=== PATIENT | male | born 1960 | race Caucasian/White ===

== ENCOUNTER 2017-05-03 07:43 | Day surgery (SDC) | payer MEDICARE ==
[2015-05-06 10:10] VITALS: BMI 37.3
[2017-05-03] MEDS ORDERED: Lactated Ringer's 1,000 ML IV ONE (08:51)
[2017-05-03] MEDS ORDERED: Propofol 10 mg/ml Inj (20 ML) ONE (10:28)
[2017-05-03 10:51] VITALS: TEMP 97.5
[2017-05-03 11:03] VITALS: BP 125/78; PULSE 70; RESP 16; O2SAT 98
== END 2017-05-03 11:04 | disposition home or self-care (01) ==
LOC: H.ENDO 07:43
PROVIDERS: ATTEND Internal Medicine Gastroenterology
DX: Z12.11 Encounter for screening for malignant neoplasm of colon (principal); K62.1 Rectal polyp; K64.8 Other hemorrhoids; E11.9 Type 2 diabetes mellitus without complications
CPT/HCPCS: 45380; 82948; 88305; J2704; J7120

== ENCOUNTER 2018-04-01 01:27 | Observation (INO) | payer MEDICARE ==
[2018-04-01 01:54] VITALS: BMI 32.3
--- NOTE | 2018-04-01 02:13 | ED PDOC ---
HPI: SOB/CHF/COPD Time Seen by Provider: 04/01/18 01:37 Chief Complaint (Nursing): Shortness Of Breath Chief Complaint (Provider): Shortness Of Breath History Per: Patient History/Exam Limitations: no limitations Onset/Duration Of Symptoms: Days (x1) Additional Complaint(s): 57 y/o male with history of CAD with 2 stents, diabetes, HTN, and hypercholesterolemia, presents to the ED with shortness of breath since yesterday that has been progressively worsening. Patient feels a heaviness inside his chest and states he was unable to sleep last night and tonight prompting ED visit. Denies cough, fever, or leg swelling. Patient is compliant with his medications. Past Medical History Reviewed: Historical Data, Nursing Documentation, Vital Signs - Medical History PMH: Anxiety, CAD, HTN, Hypercholesterolemia Denies: HIV, Chronic Kidney Disease - Surgical History Surgical History: Coronary Stent (5 STENTS) - Family History Family History: States: Unknown Family Hx - Home Medications Home Medications: Ambulatory Orders Medication Instructions Recorded Aspirin [Aspirin Chewable] 81 mg PO DAILY #0 chew 04/11/15 Atorvastatin [Lipitor] 80 mg PO DAILY #0 tab 04/11/15 MetFORMIN [glucOPHAGE] 850 mg PO BID #0 tab 04/11/15 Metoprolol Tartrate [Lopressor] 25 mg PO Q12 #0 tab 04/11/15 Ticagrelor [Brilinta] 90 mg PO BID #0 tab 04/11/15 Enalapril Maleate 5 mg PO DAILY 04/01/18 - Allergies Allergies/Adverse Reactions: Allergies Allergy/AdvReac Type Severity Reaction Status Date / Time No Known Allergies Allergy Verified 05/03/17 09:02 Review of Systems ROS Statement: Except As Marked, All Systems Reviewed And Found Negative Constitutional: Negative for: Fever Cardiovascular: Positive for: Chest Pain. Negative for: Edema (leg swelling) Respiratory: Positive for: Shortness of Breath. Negative for: Cough Physical Exam - Reviewed Nursing Documentation Reviewed: Yes Vital Signs Reviewed: Yes - Physical Exam Appears: Positive for: In Acute Distress (mild distress) Head Exam: Positive for: ATRAUMATIC, NORMOCEPHALIC Skin: Positive for: Normal Color, Warm, DRY Eye Exam: Positive for: EOMI, Normal appearance, PERRL Neck: Positive for: Normal, Painless ROM, Supple Cardiovascular/Chest: Positive for: Regular Rate, Rhythm. Negative for: Murmur Respiratory: Positive for: Crackles (bilaterally at lung bases), Other (Tachypnic) Gastrointestinal/Abdominal: Positive for: Normal Exam, Soft. Negative for: Tenderness Extremity: Positive for: Normal ROM. Negative for: Pedal Edema, Deformity, Swelling Neurologic/Psych: Positive for: Alert, Oriented. Negative for: Motor/Sensory Deficits - Laboratory Results Result Diagrams: 04/01/18 02:15 04/01/18 02:15 Medical Decision Making Medical Decision Making: Time: 01:50 A/P: 57 y/o male with history of CAD, diabetes, HTN, and hypercholesterolemia with SOB and chest heaviness. Patient is in mild distress at this time and is uncomfortable appearing. Lung exam demonstrates patient might have fluid overload. Differential diagnosis includes worsening CAD vs. CHF vs. pneumonia vs. valvular disease. * EKG * BNP * BMP * Troponin * CBC w/ diff * PTT * Prothrombin time * CXR 3AM --Patient is improved, feeling better with oxygen, no longer SOB --Patient has cardiomegaly on CXR and blunted L CPA --Will give lasix 40mg x 1 IV --Case discussed with Dr. Martinez, hospitalist for admission --Patient will require continuous cardiac monitoring, serial troponins, and further workup and warranted by inpatient team and cardiology Scribe Attestation: Documented by Kareem Bergeron acting as a scribe for Dustin Burton MD. Provider Scribe Attestation: All medical record entries made by the Scribe were at my direction and personally dictated by me. I have reviewed the chart and agree that the record a ccurately reflects my personal performance of the history, physical exam, medical decision making, and the department course for this patient. I have also personally directed, reviewed, and agree with the discharge instructions and disposition. Disposition - Clinical Impression Clinical Impression: Chest pain - Patient ED Disposition Is Patient to be Admitted: Yes - Disposition Disposition Time: 03:00 Condition: FAIR - Pt Status Changed To: Hospital Disposition Of: Inpatient - Admit Certification Admit to Inpatient:: After my assessment, the patient will require hospitalization for at least two midnights. This is because of the severity of symptoms shown, intensity of services needed, and/or the medical risk in this patient being treated as an outpatient.
[2018-04-01 02:34] LABS: PROTHROMBIN TIME 11.9 Seconds (9.8-13.1)
[2018-04-01 02:36] LABS: BASO % 0.5 % (0.0-2.0); EOS # 0.1 K/uL (0.0-0.7); EOS % 1.1 % (0.0-4.0); HEMOGLOBIN 13.6 g/dL (12.0-18.0); LYMPH # 1.6 K/uL (1.0-4.3); LYMPH % 14.6 % (20.0-40.0); MEAN CELL VOLUME 90.8 fl (80.0-94.0); MEAN CORPUSCULAR HEMOGLOBIN 29.5 pg (27.0-31.0); MEAN CORPUSCULAR HGB CONC 32.5 g/dL (33.0-37.0); MEAN PLATELET VOLUME 8.8 fl (7.2-11.7); MONO # 0.6 K/uL (0.0-0.8); MONO % 5.7 % (0.0-10.0); NEUT # 8.3 K/uL (1.8-7.0); NEUT % 78.1 % (50.0-75.0); NRBC % 0.2 % (0.0-0.0); RBC 4.6 Mil/uL (4.40-5.90); RED CELL DISTRIBUTION WIDTH 13.7 % (11.5-14.5); WHITE BLOOD COUNT 10.7 K/uL (4.8-10.8)
[2018-04-01 02:38] LABS: BLOOD UREA NITROGEN 19 mg/dl (9-20); CALCIUM 8.7 mg/dL (8.4-10.2); GFR NON-AFRICAN AMERICAN > 60
[2018-04-01 02:50] LABS: B-TYPE NATRIURETIC PEPTIDE 1670 pg/ml (0-900)
[2018-04-01] MEDS ORDERED: Dextrose 50% SYRINGE Inj (50 ml) IV PRN (04:31)
[2018-04-01] MEDS ORDERED: Glucagon Recombinant 1 mg Inj IM PRN (04:31)
--- NOTE | 2018-04-01 04:39 | CP.PCM.HP ---
<Sultan Magdy - Last Filed: 04/01/18 05:29> History of Present Illness - History of Present Illness History of Present Illness: CC: Worsening shortness of breath HPI: 57 year old male with PMHx of NSTEMI, CAD s/p 6 stents, DMII, HTN, HLD, CVA, ?COPD presents to [facility] ED with complaints of worsening shortness of breath for last few days. Patient reports he has been having trouble sleeping due to dyspnea and came to ED for evaluation. Patient reports PND and orthopnea for many months but worsens last few days. States he is able to walk only 1-2 blocks before gets shortness of breath and uses 2 pillows at night to sleep. Patient admits he is non-complaint with all of his medications, usually takes it every other day but last 3 days he has not taken any medications. Patient denies any h x congestive heart failure. Denies any leg swelling, chest pain, cough, nausea, vomiting, focal weakness, fever, or chills. Patient has smoked 1 PPD x 35 years but never been diagnosed with COPD. PMD: Dr. Umesh Veliz Customer Success Manager: Dr. Singh (last visit >2 yrs ago) PMHx: NSTEMI, CAD, HTN, HLD, DMII, CVA, ?COPD, heavy smoker SHx: Stents x 6, knee replacement Social hx: Retired 10+ yrs ago, used to work as a shipyard mechanic and welder job. Smokes 1 PPD X 35 yrs. Denies drinking EtOH or using drugs. Family hx: Father: CAD Allergies: NKDA Medications: Aspirin 81 mg PO DAILY Atorvastatin 80 mg PO DAILY, MetFORMIN 850 mg PO BID, Metoprolol Tartrate 25 mg PO Q12, Ticagrelor 90 mg PO BID, Enalapri l Maleate 5 mg PO DAILY personnel administrator: , Peace Escalona ([phone]) Present on Admission - Present on Admission Any Indicators Present on Admission: No Review of Systems - Review of Systems Review of Systems: All 12 systems reviewed and negative except as mentioned in HPI Past Patient History - Infectious Disease Hx of Infectious Diseases: None - Past Medical History & Family History Past Medical History?: Yes - Past Social History Smoking Status: Heavy Smoker > 10 Cigarettes Daily - CARDIAC Hx Hypercholesterolemia: Yes Hx Hypertension: Yes - PULMONARY Hx Respiratory Disorders: No - NEUROLOGICAL Hx Neurological Disorder: No - HEENT Hx HEENT Problems: No - RENAL Hx Chronic Kidney Disease: No - ENDOCRINE/METABOLIC Hx Endocrine Disorders: Yes Hx Diabetes Mellitus Type 2: Yes - HEMATOLOGICAL/ONCOLOGICAL Hx Human Immunodeficiency Virus (HIV): No - INTEGUMENTARY Hx Dermatological Problems: No - MUSCULOSKELETAL/RHEUMATOLOGICAL Hx Musculoskeletal Disorders: Yes Hx Falls: No Other/Comment: RT rotator cuff. - GASTROINTESTINAL Hx Gastrointestinal Disorders: No - GENITOURINARY/GYNECOLOGICAL Hx Genitourinary Disorders: No - PSYCHIATRIC Hx Anxiety: Yes - SURGICAL HISTORY Hx Coronary Stent: Yes (5 STENTS) - ANESTHESIA Hx Anesthesia: Yes Hx Anesthesia Reactions: No Hx Malignant Hyperthermia: No Meds Allergies/Adverse Reactions: Allergies Allergy/AdvReac Type Severity Reaction Status Date / Time No Known Allergies Allergy Verified 05/03/17 09:02 Physical Exam - Constitutional Appears: Non-toxic, Other (obese, look uncomfortable, on [place] oxygen) - Head Exam Head Exam: ATRAUMATIC, NORMOCEPHALIC - Eye Exam Eye Exam: EOMI, Normal appearance - ENT Exam ENT Exam: Mucous Membranes Moist - Neck Exam Neck exam: Positive for: Full Rom, Normal Inspection - Respiratory Exam Respiratory Exam: NORMAL BREATHING PATTERN. absent: Accessory Muscle Use, Rhonchi, Wheezes, Respiratory Distress Additional comments: Crackles B/L lower lung field - Cardiovascular Exam Cardiovascular Exam: REGULAR RHYTHM, +S1, +S2 - GI/Abdominal Exam GI & Abdominal Exam: Normal Bowel Sounds, Soft. absent: Tenderness - Extremities Exam Extremities exam: Positive for: normal capillary refill, normal inspection, pedal pulses present. Negative for: calf tenderness, pedal edema - Neurological Exam Neurological exam: Alert, Oriented x3 - Psychiatric Exam Psychiatric exam: Normal Affect, Normal Mood - Skin Skin Exam: Normal Color, Warm Results - Vital Signs Recent Vital Signs: Last Vital Signs Temp 97.8 F 04/01/18 02:15 Pulse 79 04/01/18 02:18 Resp 20 04/01/18 02:18 BP 155/107 H 04/01/18 03:43 Pulse Ox 99 04/01/18 02:18 - Labs Result Diagrams: 04/01/18 02:15 04/01/18 02:15 Labs: Laboratory Results - last 24 hr 04/01/18 04/01/18 04/01/18 02:15 02:15 02:15 WBC 10.7 RBC 4.60 Hgb 13.6 Hct 41.8 MCV 90.8 MCH 29.5 MCHC 32.5 L RDW 13.7 Plt Count 185 MPV 8.8 Neut % (Auto) 78.1 H Lymph % (Auto) 14.6 L Taylor % (Auto) 5.7 Eos % (Auto) 1.1 Baso % (Auto) 0.5 Neut # (Auto) 8.3 H Lymph # (Auto) 1.6 Taylor # (Auto) 0.6 Eos # (Auto) 0.1 Baso # (Auto) 0.0 PT 11.9 INR 1.0 APTT 36.0 Sodium 138 Potassium 4.4 Chloride 103 Carbon Dioxide 23 Anion Gap 16 BUN 19 Creatinine 0.8 Est GFR ( Amer) > 60 Est GFR (Non-Af Amer) > 60 Random Glucose 207 H Calcium 8.7 Troponin I 0.0150 NT-Pro-B Natriuret Pep 1670 H Assessment & Plan - Assessment and Plan (Free Text) Assessment: 57 year old male with PMHx of NSEMI, CAD s/p 6 stents, DMII, HTN, HLD, CVA, ?COPD presents to [facility] ED with complaints of worsening shortness of breath for last few days. In the ED, patients proBNP is 1670 and CXR shows cardiomegaly with increased vascular congestion. Patient is admitted for evaluation and management of shortness of breath. Plan: Shortness of breath, likely secondary to CHF exacerbation -Patient denies hx CHF -Echo in 04/09/15: severely reduced LV systolic function with LVEF of 35%; RCA/PDA wall motion abnormality; mild aortic stenosis and aortic insufficiency; moderate mitral regurgitation. -ProBNP : 1670 -s/p Lasix 40 mg IVPB -Continue Lasix 40 mg IVPB -Cardiology consult: Dr. Singh -f/u ECHO -f/u AM labs Shortness of breath r/o ACS - Hx coronary Artery disease s/p 6 stents -EKG: Ischemic changes in anterolateral leads (my interpretation). NSR -Troponin x 1 neg, f/u troponin q6h x 2 -c/w aspirin, brilinta, atorvastatin, BB, ACEI -f/u cardiology consult ?COPD/Asbestos exposure -35 pack year smoking hx -start duoneb q4 hrs -NC oxygen PRN -Monitor symptoms -f/u CXR Result Hypertension -uncontrolled -c/w home medications DMII -Hold metformin -accucheck -SSI (moderate) -Hypoglycemia protocol Hyperlipidemia -c/w Atorvastatin 80 mg po qhs GERD -start protonix 40 mg po DVT Prophylaxis -Lovenox 40 mg sc daily GI prophylaxis -Protonix 40 mg po daily Code Status: -Full code Patient seen, examined and plan d/w Dr. Juan Curran, pgy-2 <Edward Martinez - Last Filed: 04/01/18 06:55> Results - Vital Signs Recent Vital Signs: Last Vital Signs Temp 97.7 F 04/01/18 04:00 Pulse 85 04/01/18 05:36 Resp 18 04/01/18 05:36 BP 158/104 H 04/01/18 04:00 Pulse Ox 97 04/01/18 04:00 - Labs Result Diagrams: 04/01/18 02:15 04/01/18 02:15 Labs: Laboratory Results - last 24 hr 04/01/18 04/01/18 04/01/18 02:15 02:15 02:15 WBC 10.7 RBC 4.60 Hgb 13.6 Hct 41.8 MCV 90.8 MCH 29.5 MCHC 32.5 L RDW 13.7 Plt Count 185 MPV 8.8 Neut % (Auto) 78.1 H Lymph % (Auto) 14.6 L Taylor % (Auto) 5.7 Eos % (Auto) 1.1 Baso % (Auto) 0.5 Neut # (Auto) 8.3 H Lymph # (Auto) 1.6 Taylor # (Auto) 0.6 Eos # (Auto) 0.1 Baso # (Auto) 0.0 PT 11.9 INR 1.0 APTT 36.0 Sodium 138 Potassium 4.4 Chloride 103 Carbon Dioxide 23 Anion Gap 16 BUN 19 Creatinine 0.8 Est GFR ( Amer) > 60 Est GFR (Non-Af Amer) > 60 POC Glucose (mg/dL) Random Glucose 207 H Calcium 8.7 Troponin I 0.0150 NT-Pro-B Natriuret Pep 1670 H 04/01/18 05:46 WBC RBC Hgb Hct MCV MCH MCHC RDW Plt Count MPV Neut % (Auto) Lymph % (Auto) Taylor % (Auto) Eos % (Auto) Baso % (Auto) Neut # (Auto) Lymph # (Auto) Taylor # (Auto) Eos # (Auto) Baso # (Auto) PT INR APTT Sodium Potassium Chloride Carbon Dioxide Anion Gap BUN Creatinine Est GFR ( Amer) Est GFR (Non-Af Amer) POC Glucose (mg/dL) 201 H Random Glucose Calcium Troponin I NT-Pro-B Natriuret Pep Assessment & Plan - Assessment and Plan (Free Text) Plan: Agree with assessment as above, discussed case with resident and agree with treatment and diagnosis
--- NOTE | 2018-04-01 07:09 | CP.PCM.CON ---
History of Present Illness - History of Present Illness History of Present Illness: I was asked to see patient by Dr Martinez. Patient seen 04/01/18 [id number] Patient is a 57 year old male with CAD s/p PCI circumfelx and RCA, ischemic cardiomyopathy, HTn, hypercholesterolemia who presents with dyspnea. Patient has been lost to follow up since 2016, most recently devleoped progressive dyspnea on exertion. Symptoms are worse with walking one block or a flight of stairs. The patient also developed 2 pillow orthopnea. He presented to [facility] for further management. Pro BNP was elevated. Review of Systems - Constitutional Constitutional: absent: As Per HPI, Anorexia, Chills, Daytime Sleepiness, Excessive Sweating, Fatigue, Fever, Frequent Falls, Headache, Increased Appetite, Lethargy, Malaise, Night Sweats, Snoring, Sleep Apnea, Weight Gain, Weight Loss, Weakness, Other - EENT Eyes: absent: As Per HPI, Blind Spots, Blurred Vision, Change in Vision, Decreased Night Vision, Diplopia, Discharge, Dry Eye, Exophthalmos, Floaters, Irritation, Itchy Eyes, Loss of Peripheral Vision, Pain, Photophobia, Requires Corrective Lenses, Sees Flashes, Spots in Vision, Tunnel Vision, Other Visual Disturbances, Loss of Vision, Other Ears: absent: As Per HPI, Decreased Hearing, Ear Discharge, Ear Pain, Tinnitus, Abnormal Hearing, Disequilibrium, Dizziness, Other Nose/Mouth/Throat: absent: As Per HPI, Epistaxis, Nasal Congestion, Nasal Discharge, Nasal Obstruction, Nasal Trauma, Nose Pain, Post Nasal Drip, Sinus Pain, Sinus Pressure, Bleeding Gums, Change in Voice, Dental Pain, Dry Mouth, Dysphagia, Halitosis, Hoarsness, Lip Swelling, Mouth Lesions, Mouth Pain, Odyn ophagia, Sore Throat, Throat Swelling, Tongue Swelling, Facial Pain, Neck Pain, Neck Mass, Other - Cardiovascular Cardiovascular: Dyspnea, Dyspnea on Exertion, Orthopnea - Respiratory Respiratory: Dyspnea - Gastrointestinal Gastrointestinal: absent: As Per HPI, Abdominal Pain, Belching, Bloating, Change in Bowel Habits, Change in Stool Character, Coffee Ground Emesis, Constipation, Cramping, Diarrhea, Dyspepsia, Dysphagia, Early Satiety, Excessive Flatus, Fecal Incontinence, Heartburn, Hematemesis, Hematochezia, Loose Stools, Melena, Nausea, Odynophagia, Temesmus, Vomiting, Other - Genitourinary Genitourinary: absent: As Per HPI, Change in Urinary Stream, Difficulty Urinating, Dysuria, Flank Pain, Hematuria, Pyuria, Nocturia, Urinary Incontinence, Urinary Frequency, Urinary Hesitance, Urinary Urgency, Voiding Freq/Small Amts, Freq UTI, Hx Renal/Bladder Calculi, Hx /Renal Surgery, Bladder Distension, Other - Musculoskeletal Musculoskeletal: absent: As Per HPI, Abnormal Gait, Arthralgias, Atrophy, Back Pain, Deformity, Joint Swelling, Limited Range of Motion, Loss of Height, Muscle Cramps, Muscle Weakness, Myalgias, Neck Pain, Numbness, Radiating Pain into Limb, Stiffness, Tingling, Other - Integumentary Integumentary: absent: As Per HPI, Acne, Alopecia, Bleeding Lesions, Change in Hair, Change in Nails, Change in Pigmentation, Changing Lesions, Dry Skin, Erythema, Furuncle, Hirsutism, Lesions, New Lesions, Non-Healing Lesions, Photosensitivity, Pruritus, Rash, Skin Pain, Skin Ulcer, Sores, Striae, Swelling, Unusual Bruising, Wounds, Jaundice, Other - Neurological Neurological: absent: As Per HPI, Abnormal Gait, Abnormal Hearing, Abnormal Movements, Abnormal Speech, Behavioral Changes, Burning Sensations, Confusion, Convulsions, Disequilibrium, Dizziness, Numbness, Focal Weakness, Frequent Falls, Headaches, Lack of Coordination, Loss of Vision, Memory Loss, Paresthesias, Radicular Pain, Restless Legs, Sensory Deficit, Syncope, Tingling, Tremor, Vertigo, Weakness, Other Visual Disturbances, Other - Psychiatric Psychiatric: absent: As Per HPI, Abnormal Sleep Pattern, Anhedonia, Anxiety, Auditory Hallucinations, Behavioral Changes, Change in Appetite, Change in Libido, Confusion, Depression, Difficulty Concentrating, Hallucinations, Homicidal Ideation, Hopelessness, Irritability, Memory Loss, Mood Swings, Panic Attacks, Paranoia, Suicidal Ideation, Visual Hallucinations, Tactile Hallucinations, Other - Endocrine Endocrine: absent: As Per HPI, Change in Body Appearance, Change in Libido, Cold Intolorance, Deepening of Voice, Excessive Sweating, Fatigue, Flushing, Heat Intolorance, Increase in Ring/Shoe/Hat Size, Palpitations, Polydipsia, Polyphagia, Polyuria, Other - Hematologic/Lymphatic Hematologic: absent: As Per HPI, Easy Bleeding, Easy Bruising, Lymphadenopathy, Other Past Patient History - Infectious Disease Hx of Infectious Diseases: None - Past Medical History & Family History Past Medical History?: Yes - Past Social History Smoking Status: Heavy Smoker > 10 Cigarettes Daily - CARDIAC Hx Hypercholesterolemia: Yes Hx Hypertension: Yes - PULMONARY Hx Respiratory Disorders: No - NEUROLOGICAL Hx Neurological Disorder: No - HEENT Hx HEENT Problems: No - RENAL Hx Chronic Kidney Disease: No - ENDOCRINE/METABOLIC Hx Endocrine Disorders: Yes Hx Diabetes Mellitus Type 2: Yes - HEMATOLOGICAL/ONCOLOGICAL Hx Human Immunodeficiency Virus (HIV): No - INTEGUMENTARY Hx Dermatological Problems: No - MUSCULOSKELETAL/RHEUMATOLOGICAL Hx Musculoskeletal Disorders: Yes Hx Falls: No Other/Comment: RT rotator cuff. - GASTROINTESTINAL Hx Gastrointestinal Disorders: No - GENITOURINARY/GYNECOLOGICAL Hx Genitourinary Disorders: No - PSYCHIATRIC Hx Anxiety: Yes - SURGICAL HISTORY Hx Coronary Stent: Yes (5 STENTS) - ANESTHESIA Hx Anesthesia: Yes Hx Anesthesia Reactions: No Hx Malignant Hyperthermia: No Meds Allergies/Adverse Reactions: Allergies Allergy/AdvReac Type Severity Reaction Status Date / Time No Known Allergies Allergy Verified 05/03/17 09:02 - Medications Medications: Current Medications Acetaminophen (Tylenol 325mg Tab) 650 mg PO Q6 PRN PRN Reason: Pain, Mild (1-3) Albuterol/Ipratropium (Duoneb 3 Mg/0.5 Mg (3 Ml) Ud) 3 ml INH RQ4 [facility] Aspirin (Aspirin Chewable) 81 mg PO DAILY [facility] Atorvastatin Calcium (Lipitor) 80 mg PO DAILY [facility] Dextrose (Dextrose 50% Inj) 0 ml IV STAT PRN; Protocol PRN Reason: Hypoglycemia Protocol Dextrose (Glutose 15) 0 gm PO ONCE PRN; Protocol PRN Reason: Hypoglycemia Protocol Enalapril Maleate (Vasotec) 5 mg PO DAILY [facility] Enoxaparin Sodium (Lovenox) 40 mg SC DAILY [facility]; Protocol Furosemide (Lasix) 40 mg IVP DAILY [facility] Glucagon (Glucagen Diagnostic Kit) 0 mg IM STAT PRN; Protocol PRN Reason: Hypoglycemia Protocol Insulin Human Regular (Humulin R) 0 units SC ACHS [facility]; Protocol Metoprolol Tartrate (Lopressor) 25 mg PO Q12 [facility] Pantoprazole Sodium (Protonix Ec Tab) 40 mg PO DAILY [facility] Ticagrelor (Brilinta) 90 mg PO BID [facility] Physical Exam - Constitutional Appears: Non-toxic - Head Exam Head Exam: NORMAL INSPECTION - Eye Exam Eye Exam: Normal appearance - ENT Exam ENT Exam: Mucous Membranes Moist - Neck Exam Neck exam: Positive for: Full Rom - Respiratory Exam Respiratory Exam: NORMAL BREATHING PATTERN Additional comments: basilar crackles - Cardiovascular Exam Cardiovascular Exam: REGULAR RHYTHM, +S1, +S2 - GI/Abdominal Exam GI & Abdominal Exam: Normal Bowel Sounds - Rectal Exam Rectal Exam: Deferred - Extremities Exam Extremities exam: Negative for: pedal edema - Back Exam Back exam: NORMAL INSPECTION - Neurological Exam Neurological exam: Alert, Oriented x3 - Psychiatric Exam Psychiatric exam: Normal Affect - Skin Skin Exam: Normal Color Results - Vital Signs Recent Vital Signs: Last Vital Signs Temp 97.7 F 04/01/18 04:00 Pulse 85 04/01/18 05:36 Resp 18 04/01/18 05:36 BP 158/104 H 04/01/18 04:00 Pulse Ox 97 04/01/18 04:00 - Labs Result Diagrams: 04/01/18 02:15 04/01/18 02:15 Labs: Laboratory Results - last 24 hr 04/01/18 04/01/18 04/01/18 02:15 02:15 02:15 WBC 10.7 RBC 4.60 Hgb 13.6 Hct 41.8 MCV 90.8 MCH 29.5 MCHC 32.5 L RDW 13.7 Plt Count 185 MPV 8.8 Neut % (Auto) 78.1 H Lymph % (Auto) 14.6 L [place] % (Auto) 5.7 Eos % (Auto) 1.1 Baso % (Auto) 0.5 Neut # (Auto) 8.3 H Lymph # (Auto) 1.6 [place] # (Auto) 0.6 Eos # (Auto) 0.1 Baso # (Auto) 0.0 PT 11.9 INR 1.0 APTT 36.0 Sodium 138 Potassium 4.4 Chloride 103 Carbon Dioxide 23 Anion Gap 16 BUN 19 Creatinine 0.8 Est GFR ( Amer) > 60 Est GFR (Non-Af Amer) > 60 POC Glucose (mg/dL) Random Glucose 207 H Calcium 8.7 Troponin I 0.0150 NT-Pro-B Natriuret Pep 1670 H 04/01/18 05:46 WBC RBC Hgb Hct MCV MCH MCHC RDW Plt Count MPV Neut % (Auto) Lymph % (Auto) [place] % (Auto) Eos % (Auto) Baso % (Auto) Neut # (Auto) Lymph # (Auto) [place] # (Auto) Eos # (Auto) Baso # (Auto) PT INR APTT Sodium Potassium Chloride Carbon Dioxide Anion Gap BUN Creatinine Est GFR ( Amer) Est GFR (Non-Af Amer) POC Glucose (mg/dL) 201 H Random Glucose Calcium Troponin I NT-Pro-B Natriuret Pep - EKG Data EKG Interpreted by: Myself Assessment & Plan (1) Acute on chronic systolic (congestive) heart failure Assessment and Plan: patient had previous LV dysfunction, likely has gotten worse. will schedule echocardiogram. diuresis with lasix. Status: Acute (2) CAD (coronary artery disease) Assessment and Plan: previous PCI. has been greater than 2 years. will d/c Brilinta at this time. ASA 81 mg daily. likely will need repeat cardiac cath Status: Acute (3) Hypercholesterolemia Assessment and Plan: statin therapy Status: Acute (4) Hypertension Assessment and Plan: blood pressure control. Status: Acute
[2018-04-01] MEDS: Albuterol-Ipratrop 3 mg / 0.5 (3 ml) UD INH SCH ×5 (07:42→23:43)
[2018-04-01] MEDS: Enoxaparin 40 mg Syringe SC SCH (08:30)
[2018-04-01] MEDS: Insulin Regular 100 units/ml SC SCH ×4 (08:30→21:38)
[2018-04-01] MEDS: Pantoprazole 40 mg EC Tab PO SCH (08:32)
--- NOTE | 2018-04-01 09:03 | RAD ---
Date of service: 04/01/2018 PROCEDURE: CHEST RADIOGRAPH, 1 VIEW HISTORY: SOB COMPARISON: None available. FINDINGS: LUNGS: Clear. PLEURA: No pneumothorax or pleural fluid seen. CARDIOVASCULAR: No aortic atherosclerotic calcification present. Normal. OSSEOUS STRUCTURES: No significant abnormalities. VISUALIZED UPPER ABDOMEN: Normal. OTHER FINDINGS: None. IMPRESSION: No active disease.
--- NOTE | 2018-04-01 18:27 | CARD ---
APPROVED REPORT Date of service: 04/01/2018 EKG Measurement Heart [id number] <Conclusion> Sinus rhythm with 1st degree AV block Possible Left atrial enlargement Left ventricular hypertrophy with repolarization abnormality Abnormal ECG
[2018-04-01] MEDS: GlipiZIDE 2.5 mg SR Tab PO SCH (18:29)
--- NOTE | 2018-04-01 19:38 | CARD ---
APPROVED REPORT Date of service: 04/01/2018 EXAM: Two-dimensional and M-mode echocardiogram with Doppler and color Doppler. Other Information Quality : AverageRhythm : NSR INDICATION Dyspnea Elevated Pro BNP 2D DIMENSIONS IVSd1.25 (0.7-1.1cm)LVDd7.55 (3.9-5.9cm) LVOT Diameter2.62 (1.8-2.4cm)PWd1.05 (0.7-1.1cm) IVSs1.63 (0.8-1.2cm)LVDs5.26 (2.5-4.0cm) FS (%) 30.3 %PWs1.67 (0.8-1.2cm) M-Mode DIMENSIONS Left Atrium (MM)4.63 (2.5-4.0cm)IVSd0.76 (0.7-1.1cm) Aortic Root3.04 (2.2-3.7cm)LVDd7.84 (4.0-5.6cm) Aortic Cusp Exc.0.99 (1.5-2.0cm)PWd1.22 (0.7-1.1cm) IVSs0.89 cmFS (%) 24 % LVDs5.96 (2.0-3.8cm)PWs1.29 cm Aortic Valve AoV Peak Lijxpxwz600.9cm/sAoV VTI60.9cmAO Peak GR.42mmHg LVOT Peak Gcbggoxv42.0cm/sLVOT VTI14.87cmAO Mean GR.25mmHg MARGIE (VMAX)0.25bz3ECF (VTI)0.58cm2 Mitral Valve MV E Sqzjwqei223.4cm/sMV DECEL [id number] A Nmfatgtk70.5cm/s MV SZA57rsR/A ratio1.3MVA (PHT)3.63cm2 TDI Lateral E' Peak V4.97cm/sMedial E' Peak V6.36cm/sE/Lateral E'20.2 E/Medial E'15.8 LEFT VENTRICLE The Left Ventricle is moderately dilated. There is normal left ventricular wall thickness. The systolic function is moderately impaired. The estimated ejection fraction is 35-40% There is mild to moderate global hypokinesis of the left ventricle. Transmitral Doppler flow pattern is Grade II-pseudonormal filling dynamics. No left ventricle thrombus noted on this study. There is no ventricular septal defect visualized. There is no left ventricular aneurysm. There is no mass noted in the left ventricle. RIGHT VENTRICLE The right ventricle is normal size. There is normal right ventricular wall thickness. The right ventricular systolic function is normal. ATRIA The left atrium is mildly dilated. The right atrium size is normal. The interatrial septum is intact with no evidence for an atrial septal defect. AORTIC VALVE The aortic valve is normal in structure. Leaflets are calcified. Mild aortic regurgitation is present. There is moderate aortic valvular stenosis. Peak aortic velocity is 3.4 m/sec and AV area is calculated at 1.27 cm2. There is no aortic valvular vegetation. MITRAL VALVE The mitral valve is normal in structure. There is no evidence of mitral valve prolapse. There is no mitral valve stenosis. There is moderate mitral valve regurgitation noted. TRICUSPID VALVE The tricuspid valve is normal in structure. There is trace tricuspid valve regurgitation noted. There is no tricuspid valve prolapse or vegetation. There is no tricuspid valve stenosis. PULMONIC VALVE The pulmonary valve is normal in structure. There is no pulmonic valvular regurgitation. There is no pulmonic valvular stenosis. GREAT VESSELS The aortic root is normal in size. The ascending aorta is normal in size. The pulmonary artery is normal. The IVC is dilated in size and collapses >50% with inspiration. PERICARDIAL EFFUSION There is no pericardial effusion. There is no pleural effusion. <Conclusion> The estimated ejection fraction is 35-40%. The systolic function is moderately impaired. Transmitral Doppler flow pattern is Grade II-pseudonormal filling dynamics. The left atrium is mildly dilated. Mild aortic regurgitation is present. There is moderate aortic valvular stenosis. Peak aortic velocity is 3.4 m/sec and AV area is calculated at 1.27 cm2. There is moderate mitral valve regurgitation noted. The IVC is dilated in size and collapses >50% with inspiration.
[2018-04-02] MEDS: Albuterol-Ipratrop 3 mg / 0.5 (3 ml) UD INH SCH ×3 (03:11→11:30)
[2018-04-02 07:01] LABS: BLOOD UREA NITROGEN 19 mg/dl (9-20); GFR NON-AFRICAN AMERICAN > 60
[2018-04-02 08:51] VITALS: RESP 20; O2SAT 97
[2018-04-02] MEDS: GlipiZIDE 2.5 mg SR Tab PO SCH (09:32)
[2018-04-02] MEDS: Insulin Regular 100 units/ml SC SCH (09:33)
[2018-04-02] MEDS: Enoxaparin 40 mg Syringe SC SCH (09:39)
[2018-04-02] MEDS: Pantoprazole 40 mg EC Tab PO SCH (09:39)
--- NOTE | 2018-04-02 11:26 | CP.PCM.DIS ---
<AftabCarmita - Last Filed: 04/02/18 11:43> Provider - Provider Date of Admission: 04/01/18 03:13 Attending physician: Edward Martinez MD Consults: 04/01/18 04:27 Cardiology Consult Routine Comment: Consulting Provider: Lillie Singh Consulting Physician: Lillie Singh Reason for Consult: hx NSTEMI, CAD s/p multiple stents has worsening dyspnea Time Spent in preparation of Discharge (in minutes): 35 Diagnosis - Discharge Diagnosis (1) Acute on chronic systolic (congestive) heart failure Status: Acute Priority: Low (2) CAD (coronary artery disease) Status: Chronic Priority: Low (3) Chest pain Status: Resolved Priority: Low (4) Hypercholesterolemia Status: Chronic Priority: Low (5) Diabetes 1.5, managed as type 2 Status: Acute (6) Dyslipidemia Status: Chronic Priority: Low (7) Elevated serum glucose Status: Chronic Priority: Low Hospital Course - Lab Results Lab Results: Most Recent Lab Values WBC 10.7 K/uL (4.8-10.8) 04/01/18 02:15 RBC 4.60 Mil/uL (4.40-5.90) 04/01/18 02:15 Hgb 13.6 g/dL (12.0-18.0) 04/01/18 02:15 Hct 41.8 % (35.0-51.0) 04/01/18 02:15 MCV 90.8 fl (80.0-94.0) 04/01/18 02:15 MCH 29.5 pg (27.0-31.0) 04/01/18 02:15 MCHC 32.5 g/dL (33.0-37.0) L 04/01/18 02:15 RDW 13.7 % (11.5-14.5) 04/01/18 02:15 Plt Count 185 K/uL (130-400) 04/01/18 02:15 MPV 8.8 fl (7.2-11.7) 04/01/18 02:15 Neut % (Auto) 78.1 % (50.0-75.0) H 04/01/18 02:15 Lymph % (Auto) 14.6 % (20.0-40.0) L 04/01/18 02:15 Maverick % (Auto) 5.7 % (0.0-10.0) 04/01/18 02:15 Eos % (Auto) 1.1 % (0.0-4.0) 04/01/18 02:15 Baso % (Auto) 0.5 % (0.0-2.0) 04/01/18 02:15 Neut # (Auto) 8.3 K/uL (1.8-7.0) H 04/01/18 02:15 Lymph # (Auto) 1.6 K/uL (1.0-4.3) 04/01/18 02:15 Maverick # (Auto) 0.6 K/uL (0.0-0.8) 04/01/18 02:15 Eos # (Auto) 0.1 K/uL (0.0-0.7) 04/01/18 02:15 Baso # (Auto) 0.0 K/uL (0.0-0.2) 04/01/18 02:15 PT 11.9 Seconds (9.8-13.1) 04/01/18 02:15 INR 1.0 04/01/18 02:15 APTT 36.0 Seconds (25.6-37.1) 04/01/18 02:15 Sodium 139 mmol/l (132-148) 04/02/18 05:30 Potassium 4.3 MMOL/L (3.6-5.0) 04/02/18 05:30 Chloride 100 mmol/L (98-107) 04/02/18 05:30 Carbon Dioxide 29 mmol/L (22-30) 04/02/18 05:30 Anion Gap 14 (10-20) 04/02/18 05:30 BUN 19 mg/dl (9-20) 04/02/18 05:30 Creatinine 1.0 mg/dl (0.8-1.5) 04/02/18 05:30 Est GFR ( Amer) > 60 04/02/18 05:30 Est GFR (Non-Af Amer) > 60 04/02/18 05:30 POC Glucose (mg/dL) 161 mg/dL (65-110) H 04/02/18 06:17 Random Glucose 199 mg/dL (75-110) H 04/02/18 05:30 Hemoglobin A1c 9.2 % (4.2-6.5) H 04/01/18 08:45 Calcium 9.0 mg/dL (8.4-10.2) 04/02/18 05:30 Phosphorus 3.3 mg/dl (2.5-4.5) 04/01/18 08:45 Magnesium 1.9 MG/DL (1.6-2.3) 04/01/18 08:45 Troponin I 0.0210 ng/mL (0.00-0.120) 04/01/18 17:15 NT-Pro-B Natriuret Pep 1670 pg/ml (0-900) H 04/01/18 02:15 Triglycerides 159 mg/DL (0-149) H D 04/01/18 08:45 Cholesterol 118 mg/dL (0-199) 04/01/18 08:45 LDL Cholesterol Direct 56 mg/dL (0-129) 04/01/18 08:45 HDL Cholesterol 39 MG/DL (30-70) 04/01/18 08:45 - Hospital Course Hospital Course: 57 y/o obese male w/ pmhx of NSTEMI, CAD s/p 6 stents, DMII, HTN, HLD, CVA, ?COPD admitted w/ worsening shortness of breath likely secondary to CHF exacerbation after non-compliance w/ medications. Crude Tester, Dr. Singh, was consulted. Echo performed showed EF of 35-40% and valvular abnormalities. CXR did not show any active disease. Patient was treated w/ Lasix 40mg IV , and his symptoms resolved. Patient will need close follow up w/ PMD and logger all round as he might need another catheterization. Patient also advised to have outpatient PFTs done. Patient stable for discharge w/ Enalapril 10mg PO QD, Atorvastatin 10mg PO QD, Asprin 81mg PO QD, Lasix 20mg PO QD, Metformin 500mg PO BID, Metoprolol Succinate 50mg QD. Brillinta was discontinued as per Crude Tester. Discharge Exam - Head Exam Head Exam: NORMAL INSPECTION - Respiratory Exam Respiratory Exam: Clear to PA & Lateral, NORMAL BREATHING PATTERN - Cardiovascular Exam Cardiovascular Exam: REGULAR RHYTHM, +S1, +S2 - GI/Abdominal Exam GI & Abdominal Exam: Normal Bowel Sounds, Soft. absent: Tenderness - Extremities Exam Additional comments: No edema - Neurological Exam Neurological exam: Alert, Oriented x3 - Psychiatric Exam Psychiatric exam: Normal Affect - Skin Skin Exam: Dry, Intact, Normal Color Discharge Plan - Discharge Medications Prescriptions: RX: Aspirin [Aspirin Chewable] 81 mg PO DAILY #30 chew RX: Atorvastatin [Lipitor] 10 mg PO DIN #30 tab RX: Enalapril Maleate [Vasotec] 10 mg PO DAILY #30 tab Furosemide [Lasix] 20 mg PO DAILY #30 tablet RX: metFORMIN [glucOPHAGE] 500 mg PO BID 30 Days #60 tab RX: Metoprolol Succinate [[place] Sprinkle] 50 mg PO DAILY #30 cap.spr.24 - Follow Up Plan Condition: FAIR Disposition: HOME/ ROUTINE Patient education suggested?: Yes Instructions: Low Salt Diet, When Your Lungs Fill With Fluid, Lowering Your Risk of Heart Disease, Heart Failure (DC), Heart Failure (GEN), Pacemaker (DC), Pacemaker (GEN), Pulmonary Edema (DC), Pulmonary Edema (GEN), Ascites (DC), Ascites (GEN), Hypertension (DC), Hypertension (GEN) Additional Instructions: Follow up w/ pmd in 1-3 days- Dr Veliz appt with Dr Singh duane , pt would need Cardiac cath Referrals: Umesh Veliz MD [Staff Provider] - Lillie Singh MD [Staff Provider] - <Cami Yip - Last Filed: 04/02/18 14:59> Provider - Provider Date of Admission: 04/01/18 03:13 Attending physician: Edward Martinez MD Consults: 04/01/18 04:27 Cardiology Consult Routine Comment: Consulting Provider: Lillie Singh Consulting Physician: Lillie Singh Reason for Consult: hx NSTEMI, CAD s/p multiple stents has worsening dyspnea Hospital Course - Lab Results Lab Results: Most Recent Lab Values WBC 10.7 K/uL (4.8-10.8) 04/01/18 02:15 RBC 4.60 Mil/uL (4.40-5.90) 04/01/18 02:15 Hgb 13.6 g/dL (12.0-18.0) 04/01/18 02:15 Hct 41.8 % (35.0-51.0) 04/01/18 02:15 MCV 90.8 fl (80.0-94.0) 04/01/18 02:15 MCH 29.5 pg (27.0-31.0) 04/01/18 02:15 MCHC 32.5 g/dL (33.0-37.0) L 04/01/18 02:15 RDW 13.7 % (11.5-14.5) 04/01/18 02:15 Plt Count 185 K/uL (130-400) 04/01/18 02:15 MPV 8.8 fl (7.2-11.7) 04/01/18 02:15 Neut % (Auto) 78.1 % (50.0-75.0) H 04/01/18 02:15 Lymph % (Auto) 14.6 % (20.0-40.0) L 04/01/18 02:15 Maverick % (Auto) 5.7 % (0.0-10.0) 04/01/18 02:15 Eos % (Auto) 1.1 % (0.0-4.0) 04/01/18 02:15 Baso % (Auto) 0.5 % (0.0-2.0) 04/01/18 02:15 Neut # (Auto) 8.3 K/uL (1.8-7.0) H 04/01/18 02:15 Lymph # (Auto) 1.6 K/uL (1.0-4.3) 04/01/18 02:15 Maverick # (Auto) 0.6 K/uL (0.0-0.8) 04/01/18 02:15 Eos # (Auto) 0.1 K/uL (0.0-0.7) 04/01/18 02:15 Baso # (Auto) 0.0 K/uL (0.0-0.2) 04/01/18 02:15 PT 11.9 Seconds (9.8-13.1) 04/01/18 02:15 INR 1.0 04/01/18 02:15 APTT 36.0 Seconds (25.6-37.1) 04/01/18 02:15 Sodium 139 mmol/l (132-148) 04/02/18 05:30 Potassium 4.3 MMOL/L (3.6-5.0) 04/02/18 05:30 Chloride 100 mmol/L (98-107) 04/02/18 05:30 Carbon Dioxide 29 mmol/L (22-30) 04/02/18 05:30 Anion Gap 14 (10-20) 04/02/18 05:30 BUN 19 mg/dl (9-20) 04/02/18 05:30 Creatinine 1.0 mg/dl (0.8-1.5) 04/02/18 05:30 Est GFR ( Amer) > 60 04/02/18 05:30 Est GFR (Non-Af Amer) > 60 04/02/18 05:30 POC Glucose (mg/dL) 161 mg/dL (65-110) H 04/02/18 06:17 Random Glucose 199 mg/dL (75-110) H 04/02/18 05:30 Hemoglobin A1c 9.2 % (4.2-6.5) H 04/01/18 08:45 Calcium 9.0 mg/dL (8.4-10.2) 04/02/18 05:30 Phosphorus 3.3 mg/dl (2.5-4.5) 04/01/18 08:45 Magnesium 1.9 MG/DL (1.6-2.3) 04/01/18 08:45 Troponin I 0.0210 ng/mL (0.00-0.120) 04/01/18 17:15 NT-Pro-B Natriuret Pep 1670 pg/ml (0-900) H 04/01/18 02:15 Triglycerides 159 mg/DL (0-149) H D 04/01/18 08:45 Cholesterol 118 mg/dL (0-199) 04/01/18 08:45 LDL Cholesterol Direct 56 mg/dL (0-129) 04/01/18 08:45 HDL Cholesterol 39 MG/DL (30-70) 04/01/18 08:45 Attending/Attestation - Attestation I have personally seen and examined this patient.: Yes I have fully participated in the care of the patient.: Yes I have reviewed all pertinent clinical information, including history, physical exam and plan: Yes Notes (Text): 1. Acute on Chronic Systolic CHF EF 35% 2. CAD 3. HTN 4. DM type II - discussed with pt need for compliance with meds and ff up - discussed need for rpt Cardiac cath as rec by Dr Singh - pt would like to go home and wants to ff up with Dr Singh as outpt and will decide on the rpt Cardiac cath then - cont ASA, Statin, BB, SHAQUILLE and Lasix - cont Metformin
[2018-04-02 12:22] VITALS: BP 135/87; PULSE 73; TEMP 98.1
== END 2018-04-02 13:00 | disposition home or self-care (01) ==
LOC: H.ER 01:27 → H.ERHOLD 03:13 → INTOOBSV 03:13 → H.TEL 04:26
PROVIDERS: ADMIT Internal Medicine; ATTEND Internal Medicine
DX: I11.0 Hypertensive heart disease with heart failure (principal); I50.23 Acute on chronic systolic (congestive) heart failure; I25.10 Atherosclerotic heart disease of native coronary artery without angina pectoris; E11.9 Type 2 diabetes mellitus without complications; I25.2 Old myocardial infarction; I25.5 Ischemic cardiomyopathy; Z86.73 Personal history of transient ischemic attack (TIA), and cerebral infarction without residual deficits; Z79.02 Long term (current) use of antithrombotics/antiplatelets; Z79.82 Long term (current) use of aspirin; Z79.84 Long term (current) use of oral hypoglycemic drugs; Z82.49 Family history of ischemic heart disease and other diseases of the circulatory system; E66.9 Obesity, unspecified; Z91.14 Patient's other noncompliance with medication regimen; Z95.5 Presence of coronary angioplasty implant and graft; Z96.659 Presence of unspecified artificial knee joint; F41.9 Anxiety disorder, unspecified; R07.89 Other chest pain; Z79.899 Other long term (current) drug therapy; E78.00 Pure hypercholesterolemia, unspecified; E78.5 Hyperlipidemia, unspecified; F17.210 Nicotine dependence, cigarettes, uncomplicated
CPT/HCPCS: 36415; 71045; 80048; 80061; 82948; 83036; 83735; 83880; 84100; 84484; 85025; 85610; 85730; 93005; 93306; 94640; 96374; 99285; G0378; J1650; J1940